=== PATIENT | female | born 1995 | race Caucasian/White ===

== ENCOUNTER 2022-11-21 00:14 | Emergency (ER) | payer OTHER ==
[2022-11-21 00:27] VITALS: BMI 35.6
[2022-11-21] MEDS ORDERED: SODIUM CHLORIDE 0.9% 500 ML INFUS.BAG IV ONE (01:42)
[2022-11-21] MEDS ORDERED: ONDANSETRON 4 MG/2 ML VIAL IVPB ONE (01:42)
[2022-11-21] MEDS ORDERED: ACETAMINOPHEN 1000 MG/100 ML BAG IVPB ONE (01:42)
[2022-11-21] MEDS ORDERED: ONDANSETRON 4 MG/2 ML VIAL ONE (01:53)
[2022-11-21] MEDS ORDERED: ACETAMINOPHEN INJECTION 100 ML IVPB ONE (01:53)
[2022-11-21 02:38] LABS: BASO % 0.5 % (0-2.0); EOS % 1.3 % (0-4.5); HEMATOCRIT 37.8 % (32.4-45.2); HEMOGLOBIN 12.5 GM/dL (10.7-15.3); LYMPH % 6.9 % (8-40); MCH 27.7 pg (25.7-33.7); MEAN PLT VOLUME 7.2 fl (7.5-11.1); MONO % 7.3 % (3.8-10.2); PLATELET COUNT 311 10^3/uL (134-434); RDW 14.6 % (11.6-15.6); WHITE BLOOD COUNT 14.2 K/mm3 (4.0-10.0)
[2022-11-21 02:41] LABS: POTASSIUM 3.9 mmol/L (3.5-5.1)
[2022-11-21 02:44] LABS: ALBUMIN 3.6 g/dl (3.4-5.0); BLOOD UREA NITROGEN 16.5 mg/dL (7-18); CALCIUM 8.8 mg/dL (8.5-10.1); MAGNESIUM 1.8 mg/dL (1.8-2.4)
[2022-11-21 02:48] LABS: BILIRUBIN,TOTAL 0.5 mg/dL (0.2-1); CREATININE 0.8 mg/dL (0.55-1.3); PHOSPHOROUS 3.8 mg/dL (2.5-4.9); TOT PROT 7.6 g/dl (6.4-8.2)
[2022-11-21 03:16] LABS: PH,URINE 5.5 (5.0-8.0); URINE APPEARANCE CLEAR; URINE BILIRUBIN NEGATIVE (NEGATIVE); URINE COLOR YELLOW; URINE GLUCOSE (UA) NEGATIVE (NEGATIVE); URINE KETONE NEGATIVE (NEGATIVE); URINE LEUK ESTERASE NEGATIVE (NEGATIVE); URINE NITRITE NEGATIVE (NEGATIVE); URINE PROTEIN NEGATIVE (NEGATIVE)
[2022-11-21 06:17] VITALS: BP 99/70; PULSE 77; RESP 18; TEMP 98.6
== END 2022-11-21 06:40 | disposition home or self-care (01) ==
LOC: JER 00:14
PROC: 3E033NZ Introduction of Analgesics, Hypnotics, Sedatives into Peripheral Vein, Percutaneous Approach (ICD-10-PCS; principal; 2022-11-21)
PROC: 3E033GC Introduction of Other Therapeutic Substance into Peripheral Vein, Percutaneous Approach (ICD-10-PCS; 2022-11-21)
DX: R10.84 Generalized abdominal pain (principal); R11.0 Nausea; R19.7 Diarrhea, unspecified; K52.9 Noninfective gastroenteritis and colitis, unspecified; R68.83 Chills (without fever)
CPT/HCPCS: 36415; 74177-TC; 80053; 81003; 83690; 83735; 84100; 84703; 85025; 87086; 99285-25; Q9967